=== PATIENT | female | born 1970 | race African-American/Black ===

== ENCOUNTER 2016-11-02 16:42 | Emergency (ER) | payer BC ==
[~2016-11-02 16:42] MED LIST: KETOPROFEN PO
[2016-11-02] MEDS ORDERED: LISINOPRIL (16:55)
[2016-11-02] MEDS ORDERED: HCTZ (16:55)
[2016-11-02 17:41] LABS: URINE SOURCE CLEAN CATCH
[2016-11-02 17:44] LABS: URINE APPEARANCE CLEAR; URINE BILIRUBIN NEG (NEG); URINE BLOOD TRACE-INTACT (NEG); URINE COLOR YELLOW; URINE GLUCOSE NEG (NORM); URINE KETONE NEG (NEG); URINE LEUKOCYTE ESTERASE NEG (NEG); URINE NITRATE NEG (NEG); URINE PH 5.5 (5-8); URINE PROTEIN NEG (NEG); URINE SPECIFIC GRAVITY <=1.005 (1.003-1.035); URINE UROBILINOGEN 0.2 MG/DL (NORM)
[2016-11-02 17:52] LABS: BUN/CREATININE RATIO 15.55; CALCIUM SERUM 9.1 mg/dL (8.4-10.2); CREATININE SERUM 0.9 mg/dL (0.6-1.4); GLOM FILT RATE Estimated 88.3 mL/min (>60); POTASSIUM 3.7 mmol/L (3.5-5.1)
[2016-11-02 17:55] LABS: MICRO INDICATED? YES
[2016-11-02 18:15] LABS: URINE BACTERIA NEG (NEG); URINE SQUAMOUS EPITHELIAL CELL OCCAS /[HPF]; URINE WBC 0-2 /[HPF] (0-5)
== END 2016-11-02 18:17 | disposition home or self-care (01) ==
LOC: SED 16:42
PROVIDERS: Emergency Medicine
DX: I10 Essential (primary) hypertension (principal); Z98.51 Tubal ligation status; F17.210 Nicotine dependence, cigarettes, uncomplicated; Z88.0 Allergy status to penicillin
CPT/HCPCS: 36415; 80048; 81003; 84703; 99283